=== PATIENT | male | born 1995 | race Caucasian/White ===

== ENCOUNTER 2020-07-07 16:35 | Outpatient (CLI) | payer BC, SELFPAY | END 2020-07-07 16:36 | disposition home or self-care (01) | LOC: ANHCOVIDVC 16:35 | PROVIDERS: PCP Family Medicine | DX: Z23 Encounter for immunization (principal) | CPT/HCPCS: 0001A; 91300 ==

== ENCOUNTER 2020-07-28 16:32 | Outpatient (CLI) | payer BC, SELFPAY | END 2020-07-28 16:33 | disposition home or self-care (01) | LOC: ANHCOVIDVC 16:32 | PROVIDERS: PCP Family Medicine | DX: Z23 Encounter for immunization (principal) | CPT/HCPCS: 0002A; 91300 ==

== ENCOUNTER 2023-07-28 15:23 | Outpatient (CLI) | payer OTHER, SELFPAY ==
--- NOTE | ~2023-07-28 | XR_ITS ---
XR foot LT 2V, XR ankle LT 2V 07/28/2023 16:25 Indication: Polyarticular joint pain Procedure: 2 views left foot and 2 views left ankle Comparison: No prior studies for comparison. Findings: Normal anatomic alignment. No fracture, subluxation or dislocation. No erosive changes. No foreign bodies. Impression: 1: No significant bone or joint abnormality. Reviewed, dictated and finalized at location L. Impression: 1: No significant bone or joint abnormality. Impression: 1: No significant bone or joint abnormality.
--- NOTE | ~2023-07-28 | XR_ITS ---
XR knee LT 3V 07/28/2023 16:25 Indication: Polyarticular joint pain Procedure: 3 views left knee Comparison: No prior studies for comparison. Findings: Normal anatomic alignment. No fracture, subluxation or dislocation. No erosive changes. No foreign bodies. Impression: 1: No significant bone or joint abnormality. Reviewed, dictated and finalized at location L. Impression: 1: No significant bone or joint abnormality.
--- NOTE | ~2023-07-28 | XR_ITS ---
XR wrist LT 2V, XR hand LT 2V 07/28/2023 16:25 Indication: Polyarticular joint pain Procedure: 2 views of the left wrist and hand Comparison: No prior studies for comparison. Findings: There is anatomic alignment. No erosive changes. No significant degenerative change. No for eign bodies. No fracture or subluxation. Impression: 1: No significant bone or joint abnormality. Reviewed, dictated and finalized at location L. Impression: 1: No significant bone or joint abnormality. Impression: 1: No significant bone or joint abnormality.
--- NOTE | ~2023-07-28 | XR_ITS ---
XR foot RT 2V, XR ankle RT 2V 07/28/2023 16:25 Indication: Polyarticular joint pain Procedure: 2 views right foot and 2 views right ankle Comparison: No prior studies for comparison. Findings: Normal anatomic alignment. No fracture, subluxation or dislocation. No erosive changes. No foreign bodies. Impression: 1: No significant bone or joint abnormality. Reviewed, dictated and finalized at location L. Impression: 1: No significant bone or joint abnormality. Impression: 1: No significant bone or joint abnormality.
--- NOTE | ~2023-07-28 | XR_ITS ---
Polyarticular joint pain XR wrist RT 2V, XR hand RT 2V 07/28/2023 16:25 Indication: Polyarticular joint pain Procedure: 2 views of the right wrist and hand Comparison: No prior studies for comparison. Findings: There is anatomic alignment. No erosive changes. No significant degenerative change. No for eign bodies. No fracture or subluxation. Impression: 1: No significant bone or joint abnormality. Reviewed, dictated and finalized at location L. Impression: 1: No significant bone or joint abnormality. Impression: 1: No significant bone or joint abnormality.
--- NOTE | ~2023-07-28 | XR_ITS ---
XR sacroiliac joints min 3V 07/28/2023 16:25 Indication: Multiple joint pain. Procedure: 4 views sacroiliac joints Comparison: No prior studies for comparison. Findings: Sacroiliac joints are symmetric bilaterally. No significant degenerative change, ankylosis or erosion. Sacral foramen are symmetric. Impression: 1: No significant abnormality of the sacroiliac joints. Reviewed, dictated and finalized at location L. Impression: 1: No significant abnormality of the sacroiliac joints.
--- NOTE | ~2023-07-28 | XR_ITS ---
XR knee RT 3V 07/28/2023 16:25 Indication: Polyarticular joint pain Procedure: 3 views right knee Comparison: No prior studies for comparison. Findings: Normal anatomic alignment. No fracture, subluxation or dislocation. No erosive changes. No foreign bodies. Impression: 1: No significant bone or joint abnormality. Reviewed, dictated and finalized at location L. Impression: 1: No significant bone or joint abnormality.
== END 2023-07-28 15:24 ==
PROVIDERS: PCP Internal Medicine; Visit Provider Internal Medicine
DX: M25.50 Pain in unspecified joint (principal); R53.81 Other malaise; M79.10 Myalgia, unspecified site
CPT/HCPCS: 72202; 73100; 73120; 73562; 73600; 73620